=== PATIENT | female | born 1990 | race Caucasian/White ===

== ENCOUNTER 2020-05-28 06:55 | Emergency (ER) | payer OTHER ==
[~2020-05-28 06:55] MED LIST: BENTYL 20MG TAB20 MG PO; CEFTIN 500 MG PO; COLACE100 MG PO; FLORASTOR250 MG PO; IBUPROFEN600 MG PO; K-DUR TAB 20 M20 MEQ PO; NORCO 5-325 TA1 EACH PO; SPRINTEC 28 DA1 EACH PO; ZOFRAN ODT 4 MG4 MG SL
[2020-05-28] MEDS ORDERED: IBUPROFEN600 MG PO ×2 (08:51→08:54)
== END 2020-05-28 09:02 | disposition home or self-care (01) ==
LOC: ER1 06:55
DX: M54.5 Low back pain (principal); R51.9 Headache, unspecified; F17.210 Nicotine dependence, cigarettes, uncomplicated; Z90.710 Acquired absence of both cervix and uterus; W19.XXXA Unspecified fall, initial encounter; Y93.29 Activity, other involving ice and snow
CPT/HCPCS: 70450; 72125; 72131; 96374; 96375; 99284; J2270; J2405

== ENCOUNTER 2020-07-10 12:07 | Emergency (ER) | payer OTHER ==
[2020-07-10] MEDS ORDERED: PREDNISONE 20 M20 MG PO (17:24)
[2020-07-10] MEDS ORDERED: CEPHALEXIN500 M1 PO (17:24)
== END 2020-07-10 17:44 | disposition home or self-care (01) ==
LOC: ER1 12:07
DX: N39.0 Urinary tract infection, site not specified (principal); J06.9 Acute upper respiratory infection, unspecified; M51.36 Other intervertebral disc degeneration, lumbar region; I10 Essential (primary) hypertension; Z90.710 Acquired absence of both cervix and uterus; Z79.899 Other long term (current) drug therapy
CPT/HCPCS: 72148; 81001; 96374; 96375; 99284; J1100; J1885

== ENCOUNTER → 2021-01-15 | Outpatient (CLI) | payer BC, OTHER ==
[~2021-01-15] MED LIST changes: +BENTYL 10MG CAP10 MG PO; +CEPHALEXIN500 M1 PO; +CYCLOBENZAPRINE5 MG PO; +DIAZEPAM10 MG PV; +GABAPENTIN800 MG PO; +HYDROCODON-ACE1 EAC4 PO; +HYDROCODON-ACE1 EAC6 PO; +HYDROCODONE-AC1 EACH PO; +IBU800 MG PO; +LEXAPRO20 MG PO; +NICOTINE EXT; +PREDNISONE 20 M20 MG PO; +XANAX 0.25 MG0.25 MG PO
[2021-01-15 10:19] LABS: HEMOGLOBIN 12.9 gm/dl (12.3-15.3); RED BLOOD COUNT 4.27 M/UL (4.00-5.10); WHITE BLOOD COUNT 8.1 K/UL (4.5-11.0)
== END ==
LOC: OPSV2 01-13 10:00
PROVIDERS: Obstetrics & Gynecology
DX: Z01.812 Encounter for preprocedural laboratory examination (principal); R10.2 Pelvic and perineal pain
CPT/HCPCS: 81001; 85025

== ENCOUNTER → 2021-01-20 | Day surgery (SDC) | payer BC, OTHER | END | disposition home or self-care (01) | LOC: OR 07:30 | DX: N80.9 Endometriosis, unspecified (principal); N83.291 Other ovarian cyst, right side; N94.10 Unspecified dyspareunia; R33.9 Retention of urine, unspecified; E66.01 Morbid (severe) obesity due to excess calories; M19.90 Unspecified osteoarthritis, unspecified site; F41.9 Anxiety disorder, unspecified; F32.9 Major depressive disorder, single episode, unspecified; F17.210 Nicotine dependence, cigarettes, uncomplicated; Z68.38 Body mass index [BMI] 38.0-38.9, adult; Z90.710 Acquired absence of both cervix and uterus; Z79.1 Long term (current) use of non-steroidal anti-inflammatories (NSAID); Z79.899 Other long term (current) drug therapy | CPT/HCPCS: C1769; J0690; J1100; J1170; J1885; J2001; J2250; J2405; J2550; J2704; J2710; J3010; J7120 ==

== ENCOUNTER 2021-01-28 11:32 | Emergency (ER) | payer BC, OTHER ==
[~2021-01-28 11:32] MED LIST changes: -HYDROCODON-ACE1 EAC4 PO
[2021-01-28 12:36] LABS: BUN/CREATININE RATIO 20 (0-10)
[2021-01-28 12:40] LABS: HEMOGLOBIN 13.3 gm/dl (12.3-15.3); RED BLOOD COUNT 4.49 M/UL (4.00-5.10); WHITE BLOOD COUNT 14.3 K/UL (4.5-11.0)
[2021-01-28] MEDS ORDERED: HYDROCODON-ACE1 EAC4 PO (14:34)
== END 2021-01-28 14:50 | disposition home or self-care (01) ==
LOC: ER1 11:32
PROVIDERS: Nurse Practitioner
DX: G89.18 Other acute postprocedural pain (principal); R10.31 Right lower quadrant pain; R19.7 Diarrhea, unspecified
CPT/HCPCS: 80053; 81001; 83605; 83690; 85025; 85610; 87040; 96374; 96375; 96376; 99284; J2270; J2405; J7030; Q9967

== ENCOUNTER 2021-06-12 04:55 | Emergency (ER) | payer OTHER ==
[~2021-06-12 04:55] MED LIST changes: +HYDROCODON-ACE1 EAC4 PO
[2021-06-12 06:31] LABS: BUN/CREATININE RATIO 13 (0-10)
[2021-06-12 06:41] LABS: RED BLOOD COUNT 4.54 M/UL (4.00-5.10); WHITE BLOOD COUNT 15.6 K/UL (4.5-11.0)
[2021-06-12] MEDS ORDERED: IBUPROFEN600 MG PO (07:55)
[2021-06-12] MEDS ORDERED: ONDANSETRON ODT4 MG PO (07:55)
== END 2021-06-12 08:25 | disposition home or self-care (01) ==
LOC: ER1 04:55
PROVIDERS: Physician Assistant Medical
DX: R51.9 Headache, unspecified (principal); F17.210 Nicotine dependence, cigarettes, uncomplicated
CPT/HCPCS: 70450; 80053; 85025; 85652; 86140; 96374; 96375; 99284; J1200; J2405; J2765

== ENCOUNTER 2021-10-30 15:44 | Emergency (ER) | payer OTHER ==
[~2021-10-30 15:44] MED LIST changes: +ONDANSETRON ODT4 MG PO
[2021-10-30 17:25] LABS: HEMOGLOBIN 12.7 gm/dl (12.3-15.3); RED BLOOD COUNT 4.15 M/UL (4.00-5.10); WHITE BLOOD COUNT 14.9 K/UL (4.5-11.0)
[2021-10-30 17:47] LABS: BUN/CREATININE RATIO 16 (0-10)
[2021-10-30] MEDS ORDERED: AMOX TR-K CLV1 EAC4 PO (21:01)
[2021-10-30] MEDS ORDERED: ZOFRAN ODT 4 MG4 MG PO (21:01)
[2021-10-30] MEDS ORDERED: BENTYL 20MG TAB20 MG PO (21:01)
== END 2021-10-30 22:05 | disposition home or self-care (01) ==
LOC: ER1 15:44
PROVIDERS: Physician Assistant
DX: K52.9 Noninfective gastroenteritis and colitis, unspecified (principal); Z90.710 Acquired absence of both cervix and uterus; F17.210 Nicotine dependence, cigarettes, uncomplicated
CPT/HCPCS: 80053; 81001; 83605; 83690; 85025; 87086; 96361; 96374; 99284; J2405; Q9967

== ENCOUNTER → 2021-12-29 | Outpatient (CLI) | payer OTHER ==
[~2021-12-29] MED LIST changes: +AMOX TR-K CLV1 EAC4 PO; -BENTYL 10MG CAP10 MG PO; +IBU600 MG PO; -IBU800 MG PO; +LEVOTHYROXINE100 MC2 PO; +PEPCID20 MG PO; +WELLBUTRIN 75 M75 MG PO; +XANAX0.5 MG PO; +ZOFRAN ODT 4 MG4 MG PO
[2021-12-29 13:48] LABS: HEMOGLOBIN 13.4 gm/dl (12.3-15.3); RED BLOOD COUNT 4.43 M/UL (4.00-5.10); WHITE BLOOD COUNT 13.9 K/UL (4.5-11.0)
[2021-12-29 14:20] LABS: BUN/CREATININE RATIO 19 (0-10)
== END ==
LOC: OPSV2 12:30
PROVIDERS: Obstetrics & Gynecology
DX: Z01.812 Encounter for preprocedural laboratory examination (principal); R10.2 Pelvic and perineal pain
CPT/HCPCS: 36415; 80053; 81001; 85025